=== PATIENT | male | born 1935 | race Caucasian/White ===

== ENCOUNTER 2017-09-11 07:47 | Day surgery (SDC) | payer MEDICARE ==
[~2017-09-11] VITALS: Ht 177.8 cm; Wt 70.0 kg
[~2017-09-11 07:47] MED LIST: ASPI325 PO; ASPI81EC PO; BENTYL20 MG PO; CLOB.05TC TP; DONE10 PO; FAMO20 PO; FLUO.05TC TOP; FLUO10; FURO20 PO; GLIM4 PO; GLIP2.5ER; GLYB5; GLYMET5 PO; Glipizide-Metf1 EAC2 PO; HYDACE5 PO; INSULANI SUBQ; KETO15TC TP; MECL25 PO; MEMA10 PO; METO25ER PO; MIDO5 PO; NITR.4SL SL; PIOG15 PO; Prozac20 MG PO; SPIR25 PO; Zofran4 MG PO
== END 2017-09-11 09:35 | disposition home or self-care (01) ==
LOC: ORSCSDS 07:47
PROVIDERS: Internal Medicine Gastroenterology
PROC: 06L38CZ Occlusion of Esophageal Vein with Extraluminal Device, Via Natural or Artificial Opening Endoscopic (ICD-10-PCS; principal; 2017-09-11 09:00)
DX: K74.60 Unspecified cirrhosis of liver (principal); I85.00 Esophageal varices without bleeding; K44.9 Diaphragmatic hernia without obstruction or gangrene; K76.6 Portal hypertension; I25.10 Atherosclerotic heart disease of native coronary artery without angina pectoris; E11.9 Type 2 diabetes mellitus without complications; K31.89 Other diseases of stomach and duodenum; Z79.899 Other long term (current) drug therapy
CPT/HCPCS: 82947

== ENCOUNTER 2017-10-30 12:50 | Day surgery (SDC) | payer MEDICARE ==
[~2017-10-30] VITALS: Ht 177.8 cm; Wt 66.4 kg
== END 2017-10-30 14:50 | disposition home or self-care (01) ==
LOC: ORSCSDS 12:50
PROVIDERS: Internal Medicine Gastroenterology
PROC: 06L38CZ Occlusion of Esophageal Vein with Extraluminal Device, Via Natural or Artificial Opening Endoscopic (ICD-10-PCS; principal; 2017-10-30 14:15)
DX: I85.00 Esophageal varices without bleeding (principal); K44.9 Diaphragmatic hernia without obstruction or gangrene; K22.2 Esophageal obstruction; R18.8 Other ascites; E11.9 Type 2 diabetes mellitus without complications; F32.9 Major depressive disorder, single episode, unspecified; I25.10 Atherosclerotic heart disease of native coronary artery without angina pectoris; Z79.899 Other long term (current) drug therapy; Z79.84 Long term (current) use of oral hypoglycemic drugs
CPT/HCPCS: 82947; J7120

== ENCOUNTER 2018-02-11 17:05 | Observation (INO) | payer MEDICARE ==
[~2018-02-11] VITALS: Ht 180.3 cm; Wt 70.9 kg
[2018-02-11] MEDS ORDERED: POTCHL10ER PO (18:55)
[2018-02-11] MEDS ORDERED: TRAZ50 PO (18:55)
[2018-02-11] MEDS ORDERED: MEMA5TAB PO (18:55)
[2018-02-11 18:56] LABS: BASOPHILS ABSOLUTE AUTO 0.07 K/mm3 (0.00-0.23); BASOPHILS PERCENT AUTO 1 % (0-2); EOSINOPHILS PERCENT AUTO 4 % (0-6); IMMATURE GRAN ABSOLUTE AUTO 0.04 K/mm3 (0.00-0.10); IMMATURE GRAN PERCENT AUTO 1 % (0-1); LYMPHOCYTES ABSOLUTE AUTO 2.52 K/mm3 (0.84-5.20); LYMPHOCYTES PERCENT AUTO 30 % (21-46); MONOCYTES ABSOLUTE AUTO 1.21 K/mm3 (0.16-1.47); MONOCYTES PERCENT AUTO 14 % (4-13); Mean Corpuscular HGB 32.7 pg (26.0-34.0); Mean Corpuscular HGB Conc 33.3 g/dL (31.5-36.5); Mean Corpuscular Volume 98 fL (80-100); Mean Platelet Volume 10.1 fL (9.1-12.4); NEUTROPHILS ABSOLUTE AUTO 4.37 K/mm3 (1.96-9.15); NEUTROPHILS PERCENT AUTO 51 % (41-73); Platelet Count 172 K/mm3 (150-400); RDW Coefficient Variation 12.8 % (11.7-14.2); RDW Standard Deviation 45.8 fL (35.1-46.3); Red Blood Cell Count 3.67 M/mm3 (4.30-5.90); White Blood Cell Count 8.51 K/mm3 (4.00-11.30)
[2018-02-11 19:08] LABS: Albumin, Blood 2.9 g/dL (3.4-5.0); Albumin/Globulin Ratio 0.7 (0.8-1.8); Bilirubin, Total 0.9 mg/dL (0.1-1.0); Bun/Creatinine Ratio 23.8 (12.0-20.0); Calcium, Blood 9.2 mg/dL (8.5-10.1); Creatinine, Blood 1.3 mg/dL (0.60-1.20); Globulin, Blood 4.4 g/dL (2.2-4.0); Potassium, Blood 4.3 mmol/L (3.5-5.5); Total Protein, Blood 7.3 g/dL (6.4-8.2)
[2018-02-11 19:12] LABS: Source, Urine Clean Catch
[2018-02-11 19:14] LABS: Appearance, Urine Hazy (Clear); Bilirubin, Urine Neg (Neg); Blood, Urine 3+ (Neg); Color, Urine Yellow (P-Yellow); Glucose Qualitative, Urine Neg (Neg); Ketones, Urine Neg (Neg); Leukocyte Esterase, Urine 1+ (Neg); Nitrite, Urine Pos (Neg); Protein, Urine Neg (Neg); Urobilinogen, Urine 1+ (Normal)
[2018-02-11 19:53] LABS: Bacteria Many /hpf; Squamous Epithelial Cells Few /hpf (Few)
[2018-02-11] MEDS ORDERED: CHOL10002 PO (22:07)
[2018-02-11] MEDS ORDERED: Glipizide-Metf1 EAC1 PO (22:08)
[2018-02-11] MEDS ORDERED: CYAN500 PO (22:11)
[2018-02-12 05:26] LABS: Anion Gap 6 mmol/L (6-16); Blood Urea Nitrogen 27 mg/dL (8-24); Bun/Creatinine Ratio 24.3 (12.0-20.0); CO2, Blood 26 mmol/L (21-32); Calcium, Blood 8.2 mg/dL (8.5-10.1); Chloride, Blood 106 mmol/L (98-108); Creatinine, Blood 1.11 mg/dL (0.60-1.20); Glomerular Filtration Rate >60 (60-); Glucose, Blood 62 mg/dL (70-99); Sodium, Blood 138 mmol/L (136-145)
[2018-02-13 05:23] LABS: BASOPHILS ABSOLUTE AUTO 0.04 K/mm3 (0.00-0.23); BASOPHILS PERCENT AUTO 1 % (0-2); EOSINOPHILS ABSOLUTE AUTO 0.31 K/mm3 (0.00-0.68); EOSINOPHILS PERCENT AUTO 5 % (0-6); Hematocrit 35.1 % (37.0-53.0); Hemoglobin 11.9 g/dL (13.5-17.5); IMMATURE GRAN ABSOLUTE AUTO 0.03 K/mm3 (0.00-0.10); IMMATURE GRAN PERCENT AUTO 1 % (0-1); LYMPHOCYTES ABSOLUTE AUTO 1.69 K/mm3 (0.84-5.20); LYMPHOCYTES PERCENT AUTO 28 % (21-46); MONOCYTES ABSOLUTE AUTO 0.97 K/mm3 (0.16-1.47); MONOCYTES PERCENT AUTO 16 % (4-13); Mean Corpuscular HGB 32.3 pg (26.0-34.0); Mean Corpuscular HGB Conc 33.9 g/dL (31.5-36.5); Mean Platelet Volume 9.3 fL (9.1-12.4); NEUTROPHILS PERCENT AUTO 51 % (41-73); Platelet Count 136 K/mm3 (150-400); RDW Coefficient Variation 12.3 % (11.7-14.2); RDW Standard Deviation 43.5 fL (35.1-46.3); Red Blood Cell Count 3.68 M/mm3 (4.30-5.90); White Blood Cell Count 6.14 K/mm3 (4.00-11.30)
[2018-02-13 05:27] LABS: Mean Corpuscular Volume 95 fL (80-100)
[2018-02-13 05:49] LABS: Alanine Aminotransfer (ALT/SGP 37 U/L (12-78); Albumin, Blood 2.6 g/dL (3.4-5.0); Albumin/Globulin Ratio 0.6 (0.8-1.8); Alk Phos 109 U/L (50-136); Anion Gap 6 mmol/L (6-16); Aspartate Aminotrans (AST/SGOT 39 U/L (12-37); Bilirubin, Total 1.3 mg/dL (0.1-1.0); Blood Urea Nitrogen 19 mg/dL (8-24); Bun/Creatinine Ratio 18.8 (12.0-20.0); CO2, Blood 26 mmol/L (21-32); Calcium, Blood 8.3 mg/dL (8.5-10.1); Chloride, Blood 110 mmol/L (98-108); Creatinine, Blood 1.01 mg/dL (0.60-1.20); Glomerular Filtration Rate >60 (60-); Glucose, Blood 81 mg/dL (70-99); Potassium, Blood 4.2 mmol/L (3.5-5.5); Sodium, Blood 142 mmol/L (136-145); Total Protein, Blood 6.6 g/dL (6.4-8.2)
[2018-02-14] MEDS ORDERED: Metformin HCl500 MG PO (10:00)
[2018-02-14] MEDS ORDERED: LEVFLO500 PO (10:00)
== END 2018-02-14 13:28 | disposition home health service (06) ==
LOC: ER 17:05 → MEDS 17:06 → ENPENDDIS 02-14 09:27 → MEDS 02-14 13:28
PROVIDERS: Emergency Medicine; Internal Medicine
DX: R53.1 Weakness (principal); R29.6 Repeated falls; N39.0 Urinary tract infection, site not specified; N17.9 Acute kidney failure, unspecified; K74.60 Unspecified cirrhosis of liver; F03.90 Unspecified dementia, unspecified severity, without behavioral disturbance, psychotic disturbance, mood disturbance, and anxiety; E11.9 Type 2 diabetes mellitus without complications; Z88.5 Allergy status to narcotic agent; Z88.8 Allergy status to other drugs, medicaments and biological substances; Z79.899 Other long term (current) drug therapy
CPT/HCPCS: 36415; 80048; 80053; 81001; 84443; 85025; 93005; 93010; 96361; 96365; 96372; 96374; 96375; 97161; 97166; 99285; G0378; G0515; G8978; G8979; G8980; G8987; G8988; G8989; J0696; J1650; J7030

== ENCOUNTER 2018-09-06 11:06 | Emergency (ER) | payer MEDICARE ==
[~2018-09-06] VITALS: Ht 172.7 cm; Wt 63.5 kg
[~2018-09-06 11:06] MED LIST changes: +CHOL10002 PO; +CYAN500 PO; +Glipizide-Metf1 EAC1 PO; +LEVFLO500 PO; +MEMA5TAB PO; +Metformin HCl500 MG PO; +POTCHL10ER PO; +TRAZ50 PO
== END 2018-09-06 11:54 | disposition home or self-care (01) ==
LOC: ER 11:06
DX: S41.112A Laceration without foreign body of left upper arm, initial encounter (principal); S41.111A Laceration without foreign body of right upper arm, initial encounter; E11.9 Type 2 diabetes mellitus without complications; F03.90 Unspecified dementia, unspecified severity, without behavioral disturbance, psychotic disturbance, mood disturbance, and anxiety; Z88.5 Allergy status to narcotic agent; Z79.899 Other long term (current) drug therapy; Z79.84 Long term (current) use of oral hypoglycemic drugs; Y04.0XXA Assault by unarmed brawl or fight, initial encounter
CPT/HCPCS: 99283

== ENCOUNTER 2018-10-09 10:47 | Emergency (ER) | payer MEDICARE ==
[~2018-10-09] VITALS: Ht 170.2 cm; Wt 65.8 kg
== END 2018-10-09 12:14 | disposition home or self-care (01) ==
LOC: ER 10:47
DX: M79.89 Other specified soft tissue disorders (principal); E11.9 Type 2 diabetes mellitus without complications; I25.10 Atherosclerotic heart disease of native coronary artery without angina pectoris; F03.90 Unspecified dementia, unspecified severity, without behavioral disturbance, psychotic disturbance, mood disturbance, and anxiety; Z88.5 Allergy status to narcotic agent; Z88.8 Allergy status to other drugs, medicaments and biological substances; Z79.899 Other long term (current) drug therapy; Z79.84 Long term (current) use of oral hypoglycemic drugs
CPT/HCPCS: 73130; 99283-25

== ENCOUNTER 2019-09-23 19:23 | Observation (INO) | payer MEDICARE ==
[~2019-09-23] VITALS: Ht 182.9 cm; Wt 68.5 kg
[~2019-09-23 19:23] MED LIST changes: -MEMA5TAB PO; -Prozac20 MG PO; -TRAZ50 PO
[2019-09-23 20:23] LABS: BASOPHILS ABSOLUTE AUTO 0.04 K/mm3 (0.00-0.23); BASOPHILS PERCENT AUTO 1 % (0-2); EOSINOPHILS ABSOLUTE AUTO 0.23 K/mm3 (0.00-0.68); EOSINOPHILS PERCENT AUTO 4 % (0-6); Hematocrit 38.5 % (37.0-53.0); Hemoglobin 12.5 g/dL (13.5-17.5); IMMATURE GRAN ABSOLUTE AUTO 0.02 K/mm3 (0.00-0.10); IMMATURE GRAN PERCENT AUTO 0 % (0-1); LYMPHOCYTES ABSOLUTE AUTO 1.94 K/mm3 (0.84-5.20); LYMPHOCYTES PERCENT AUTO 29 % (21-46); MONOCYTES PERCENT AUTO 17 % (4-13); Mean Corpuscular HGB 31.9 pg (26.0-34.0); Mean Corpuscular HGB Conc 32.5 g/dL (31.5-36.5); Mean Corpuscular Volume 98 fL (80-100); Mean Platelet Volume 10.1 fL (9.1-12.4); NEUTROPHILS ABSOLUTE AUTO 3.29 K/mm3 (1.96-9.15); NEUTROPHILS PERCENT AUTO 50 % (41-73); Platelet Count 143 K/mm3 (150-400); RDW Coefficient Variation 13.2 % (11.7-14.2); Red Blood Cell Count 3.92 M/mm3 (4.30-5.90); White Blood Cell Count 6.62 K/mm3 (4.00-11.30)
[2019-09-23] MEDS ORDERED: TRAZ50 PO (20:31)
[2019-09-23] MEDS ORDERED: Prozac20 MG PO (20:31)
[2019-09-23] MEDS ORDERED: MEMA5TAB PO (20:31)
[2019-09-23 20:47] LABS: Troponin I 0.015 ng/mL (0.000-0.040)
[2019-09-23 20:48] LABS: Thyroid Stimulating Hormone 2.72 uIU/mL (0.360-4.800)
[2019-09-23 21:38] LABS: Source, Urine Clean Catch
[2019-09-23 21:40] LABS: Bilirubin, Urine Neg (Neg); Blood, Urine 4+ (Neg); Glucose Qualitative, Urine Neg (Neg); Ketones, Urine Neg (Neg); Leukocyte Esterase, Urine Neg (Neg); Nitrite, Urine Neg (Neg); Protein, Urine Neg (Neg); Specific Gravity, Urine 1.015 (1.003-1.022); Urobilinogen, Urine 2+ (Normal)
[2019-09-23 21:46] LABS: Appearance, Urine Clear (Clear); Bacteria Not Seen /hpf; Color, Urine Yellow (P-Yellow); Squamous Epithelial Cells Not Seen /hpf (Few); White Blood Cells, Urine Not Seen /hpf (0-5)
[2019-09-23 22:07] LABS: Alanine Aminotransfer (ALT/SGP 38 U/L (12-78); Albumin, Blood 2.8 g/dL (3.4-5.0); Albumin/Globulin Ratio 0.6 (0.8-1.8); Alk Phos 210 U/L (50-136); Anion Gap 10 mmol/L (6-16); Aspartate Aminotrans (AST/SGOT 44 U/L (12-37); Blood Urea Nitrogen 20 mg/dL (8-24); Bun/Creatinine Ratio 20.8 (12.0-20.0); CO2, Blood 22 mmol/L (21-32); Calcium, Blood 8.4 mg/dL (8.5-10.1); Chloride, Blood 108 mmol/L (98-108); Creatinine, Blood 0.96 mg/dL (0.60-1.20); Globulin, Blood 4.4 g/dL (2.2-4.0); Glomerular Filtration Rate >60 (60-); Glucose, Blood 90 mg/dL (70-99); Potassium, Blood 4.1 mmol/L (3.5-5.5); Sodium, Blood 140 mmol/L (136-145); Total Protein, Blood 7.2 g/dL (6.4-8.2)
[2019-09-24 04:37] LABS: Hematocrit 37.4 % (37.0-53.0); Hemoglobin 12.2 g/dL (13.5-17.5); Mean Corpuscular HGB 31.9 pg (26.0-34.0); Mean Corpuscular HGB Conc 32.6 g/dL (31.5-36.5); Mean Corpuscular Volume 98 fL (80-100); Mean Platelet Volume 10.3 fL (9.1-12.4); Platelet Count 131 K/mm3 (150-400); RDW Standard Deviation 46.6 fL (35.1-46.3); Red Blood Cell Count 3.83 M/mm3 (4.30-5.90); White Blood Cell Count 6.39 K/mm3 (4.00-11.30)
--- NOTE | 2019-09-24 04:51 | NUR ---
TIMBER ESTIMATOR SUMMARY 0030 REPORT RECIEVED FROM ER NURSE RAFI. 0050 PT ARRIVED TO UNIT VIA STRETCHER. CAN ANSWER YES OR NO QUESTIONS. PT SLOW TO RESPOND AND HAS HX OF DEMENTIA. MULTIPLE SCRATCHES NOTICED ON BLE. REDNESS AND SORENESS IN GROIN AREA. NYSTAIN ORDERED. MULTIPLE BRUISES THROUGHOUT. ABRASION TO BILATERAL ELBOW. BANDAIDS APPLIED. NS FLUIDS RUNNING. DENIES PAIN, NAUSEA, AND OTHER DISCOMFORTS. CURRENTLY ON BEDREST. PT PLESANTLY CONFUSED. VSS, WILL CONTINUE TO MONITOR.
[2019-09-24 05:00] LABS: Alanine Aminotransfer (ALT/SGP 36 U/L (12-78); Albumin, Blood 2.6 g/dL (3.4-5.0); Albumin/Globulin Ratio 0.7 (0.8-1.8); Alk Phos 197 U/L (50-136); Anion Gap 6 mmol/L (6-16); Aspartate Aminotrans (AST/SGOT 42 U/L (12-37); Bilirubin, Total 1.4 mg/dL (0.1-1.0); Blood Urea Nitrogen 19 mg/dL (8-24); Bun/Creatinine Ratio 21.9 (12.0-20.0); CO2, Blood 23 mmol/L (21-32); Calcium, Blood 8.3 mg/dL (8.5-10.1); Chloride, Blood 110 mmol/L (98-108); Creatinine, Blood 0.87 mg/dL (0.60-1.20); Globulin, Blood 3.9 g/dL (2.2-4.0); Glomerular Filtration Rate >60 (60-); Glucose, Blood 84 mg/dL (70-99); Potassium, Blood 3.8 mmol/L (3.5-5.5); Sodium, Blood 139 mmol/L (136-145); Total Protein, Blood 6.5 g/dL (6.4-8.2)
--- NOTE | 2019-09-24 15:50 | NUR ---
SHIFT SUMMARY PATIENT IS PLEASANTLY CONFUSED. HE IS EASILY REDIRECTABLE. HE HAS BEEN MIXED CONT/INCONT OF BOWEL AND BLADDER TODAY. HE DOES NOT REMEMBER TO USE THE CALL LIGHT FOR STAFF ASSISTANCE, BUT HE IS VERY FORGETFUL. VITALS ARE STABLE AND WNL. RED AREAS NOTED TO BILATERAL HIPS AND COCCYX AREA, COVERED WITH FOAM BANDAGES FOR EXTRA PADDING. NO ACUTE CHANGES TO REPORT ON AT THIS TIME. WILL CONTINUE TO MONITOR AND PROVIDE CARE NEEDED.
--- NOTE | 2019-09-25 03:00 | NUR ---
APPEALS OFFICER SUMMARY PT A/O X1 TO SELF. SLEPT MAJORITY OF THE NIGHT. HAS TRIED TO GET OUT OF BED A FEW TIMES DURING THE NIGHT. MOST OF THE TIMES WHEN HE IS TRYING TO GET UP IS BECAUSE HE NEEDS TO USE THE URINAL OR BEDSIDE COMMODE. PT PULLED OUT IV IN RIGHT FOREARM. PT STARTED TO PULL OUT DNR BRACELET TOO AND STATED IT WAS "HURTING" HIM. RN. CARPIO INSERTED NEW IV IN L UPPER ARM. FLUSHES WELL. BED ALARM ON. CALL LIGHT WITHIN REACH. VSS, WILL CONTINUE TO MONITOR.
--- NOTE | 2019-09-25 18:26 | NUR ---
SHIFT SUMMARY. 1756 PT DISCHARGED HOME WITH HH VIA W/C TRANSPORT. IV REMOVED. D/C PACKET GIVEN TO CYLINDER CHECKER. PT PLEASANT ALL OF SHIFT, DISORIENTATED BUT EASILY DIRECTABLE. NO NEW CHANGES OR CONCERNS.
== END 2019-09-25 17:56 | disposition home health service (06) ==
LOC: ER 19:23 → MEDS 19:25 → ER 09-24 00:38 → MEDS 09-24 00:38 → ENPENDDIS 09-25 08:30 → MEDS 09-25 17:56
PROVIDERS: Emergency Medicine; ADMIT Internal Medicine
DX: R53.1 Weakness (principal); F03.90 Unspecified dementia, unspecified severity, without behavioral disturbance, psychotic disturbance, mood disturbance, and anxiety; E11.9 Type 2 diabetes mellitus without complications; K74.60 Unspecified cirrhosis of liver; E86.0 Dehydration; R21 Rash and other nonspecific skin eruption; I51.9 Heart disease, unspecified; Z88.5 Allergy status to narcotic agent; Z88.8 Allergy status to other drugs, medicaments and biological substances; Z79.899 Other long term (current) drug therapy; Z87.891 Personal history of nicotine dependence; Z72.89 Other problems related to lifestyle
CPT/HCPCS: 36415; 51701; 70450; 71045; 80053; 81001; 84443; 84484; 85025; 85027; 93005; 93010; 96372; 97110; 97162; 97166; 97530; 97535; 99285-25; G0378; J1650; J7030

== ENCOUNTER 2019-10-29 19:05 | Emergency (ER) | payer MEDICARE ==
[~2019-10-29] VITALS: Ht 177.8 cm; Wt 86.2 kg
[~2019-10-29 19:05] MED LIST changes: +MEMA5TAB PO; +Prozac20 MG PO; +TRAZ50 PO
[2019-10-29 20:19] LABS: BASOPHILS ABSOLUTE AUTO 0.04 K/mm3 (0.00-0.23); BASOPHILS PERCENT AUTO 1 % (0-2); EOSINOPHILS ABSOLUTE AUTO 0.17 K/mm3 (0.00-0.68); EOSINOPHILS PERCENT AUTO 3 % (0-6); Hematocrit 38.5 % (37.0-53.0); Hemoglobin 13.1 g/dL (13.5-17.5); IMMATURE GRAN ABSOLUTE AUTO 0.02 K/mm3 (0.00-0.10); IMMATURE GRAN PERCENT AUTO 0 % (0-1); LYMPHOCYTES ABSOLUTE AUTO 1.36 K/mm3 (0.84-5.20); LYMPHOCYTES PERCENT AUTO 21 % (21-46); MONOCYTES PERCENT AUTO 17 % (4-13); Mean Corpuscular HGB 32.8 pg (26.0-34.0); Mean Corpuscular Volume 97 fL (80-100); Mean Platelet Volume 9.5 fL (9.1-12.4); NEUTROPHILS ABSOLUTE AUTO 3.93 K/mm3 (1.96-9.15); NEUTROPHILS PERCENT AUTO 59 % (41-73); Platelet Count 149 K/mm3 (150-400); RDW Coefficient Variation 12.8 % (11.7-14.2); RDW Standard Deviation 45.7 fL (35.1-46.3); Red Blood Cell Count 3.99 M/mm3 (4.30-5.90); White Blood Cell Count 6.62 K/mm3 (4.00-11.30)
[2019-10-29 20:48] LABS: Alanine Aminotransfer (ALT/SGP 47 U/L (12-78); Albumin, Blood 2.9 g/dL (3.4-5.0); Albumin/Globulin Ratio 0.6 (0.8-1.8); Alk Phos 241 U/L (50-136); Anion Gap 2 mmol/L (6-16); Aspartate Aminotrans (AST/SGOT 42 U/L (12-37); Blood Urea Nitrogen 22 mg/dL (8-24); Bun/Creatinine Ratio 22.7 (12.0-20.0); CO2, Blood 29 mmol/L (21-32); Calcium, Blood 8.7 mg/dL (8.5-10.1); Chloride, Blood 102 mmol/L (98-108); Creatinine, Blood 0.97 mg/dL (0.60-1.20); Globulin, Blood 4.5 g/dL (2.2-4.0); Glomerular Filtration Rate >60 (60-); Glucose, Blood 174 mg/dL (70-99); Sodium, Blood 133 mmol/L (136-145); Total Protein, Blood 7.4 g/dL (6.4-8.2)
== END 2019-10-29 21:40 | disposition home or self-care (01) ==
LOC: ER 19:05
PROVIDERS: Emergency Medicine
DX: S01.81XA Laceration without foreign body of other part of head, initial encounter (principal); F03.90 Unspecified dementia, unspecified severity, without behavioral disturbance, psychotic disturbance, mood disturbance, and anxiety; E11.9 Type 2 diabetes mellitus without complications; X58.XXXA Exposure to other specified factors, initial encounter
CPT/HCPCS: 12001; 36415; 70450; 80053; 85025; 99284-25

== ENCOUNTER → 2019-12-18 | Outpatient (CLI) | payer MEDICARE, OTHER ==
[2019-12-18 16:14] LABS: Appearance, Urine Clear (Clear); Bilirubin, Urine Neg (Neg); Blood, Urine 1+ (Neg); Color, Urine Yellow (P-Yellow); Glucose Qualitative, Urine Neg (Neg); Ketones, Urine Neg (Neg); Leukocyte Esterase, Urine Neg (Neg); Nitrite, Urine Neg (Neg); Protein, Urine Neg (Neg); Specific Gravity, Urine 1.015 (1.003-1.022); Urobilinogen, Urine NORM (Normal)
[2019-12-18 16:24] LABS: Bacteria Few /hpf; Red Blood Cells, Urine 0-2 /hpf (0-2); Squamous Epithelial Cells Not Seen /hpf (Few); White Blood Cells, Urine 0-2 /hpf (0-5)
== END | disposition home or self-care (01) ==
LOC: LAB 13:43 → LAB SHORT 13:43
PROVIDERS: Nurse Practitioner
DX: N39.0 Urinary tract infection, site not specified (principal)
CPT/HCPCS: 81001

== ENCOUNTER → 2020-06-18 | Outpatient (CLI) | payer MEDICARE, OTHER ==
[2020-06-19 14:30] LABS: Appearance, Urine Clear (Clear); Bilirubin, Urine Neg (Neg); Blood, Urine Neg (Neg); Color, Urine Yellow (P-Yellow); Glucose Qualitative, Urine Neg (Neg); Ketones, Urine Neg (Neg); Leukocyte Esterase, Urine Neg (Neg); Nitrite, Urine Neg (Neg); Protein, Urine Neg (Neg); Urobilinogen, Urine NORM (Normal); pH, Urine 6.5 (5.0-8.0)
== END | disposition home or self-care (01) ==
LOC: LAB SHORT 14:15 → OLS 14:15 → LAB SHORT 06-19 14:15
PROVIDERS: Nurse Practitioner
DX: N39.0 Urinary tract infection, site not specified (principal)
CPT/HCPCS: 81003

== ENCOUNTER 2022-01-03 13:00 | Inpatient (IN) | payer MEDICARE, OTHER ==
[~2022-01-03] VITALS: Ht 177.8 cm; Wt 75.0 kg
[2022-01-03] MEDS ORDERED: DONEPEZIL HCL10 M1 PO (13:15)
[2022-01-03] MEDS ORDERED: K-Dur10 MEQ (13:15)
[2022-01-03] MEDS ORDERED: FUROSEMIDE20 MG PO (13:15)
[2022-01-03 14:50] LABS: Base Excess Venous -8.8 mmol/L; Bicarbonate Venous 17.7 mmol/L (24.0-30.0); PCO2 Venous 35.7 mmHg (38-42); PO2 Venous 56.8 mmHg (38-42)
[2022-01-03 15:13] LABS: BASOPHILS ABSOLUTE AUTO 0.02 K/mm3 (0.00-0.23); BASOPHILS PERCENT AUTO 0 % (0-2); EOSINOPHILS PERCENT AUTO 0 % (0-6); Hematocrit 33.5 % (37.0-53.0); Hemoglobin 10.7 g/dL (13.5-17.5); IMMATURE GRAN ABSOLUTE AUTO 0.04 K/mm3 (0.00-0.10); IMMATURE GRAN PERCENT AUTO 0 % (0-1); LYMPHOCYTES ABSOLUTE AUTO 0.82 K/mm3 (0.84-5.20); LYMPHOCYTES PERCENT AUTO 9 % (21-46); MONOCYTES PERCENT AUTO 14 % (4-13); Mean Corpuscular HGB Conc 31.9 g/dL (31.5-36.5); Mean Platelet Volume 10.9 fL (9.1-12.4); NEUTROPHILS ABSOLUTE AUTO 7.22 K/mm3 (1.96-9.15); NEUTROPHILS PERCENT AUTO 77 % (41-73); Platelet Count 138 K/mm3 (150-400); RDW Coefficient Variation 14.6 % (11.7-14.2); RDW Standard Deviation 53.5 fL (35.1-46.3); Red Blood Cell Count 3.34 M/mm3 (4.30-5.90)
[2022-01-03 15:14] LABS: Mean Corpuscular Volume 100 fL (80-100)
[2022-01-03 15:34] LABS: Albumin, Blood 2.4 g/dL (3.4-5.0); Albumin/Globulin Ratio 0.6 (0.8-1.8); Bilirubin, Total 1.1 mg/dL (0.1-1.0); Calcium, Blood 8.1 mg/dL (8.5-10.1); Creatinine, Blood 1.81 mg/dL (0.60-1.20); Globulin, Blood 4.1 g/dL (2.2-4.0); Potassium, Blood 5.2 mmol/L (3.5-5.5); Total Protein, Blood 6.5 g/dL (6.4-8.2)
[2022-01-03 16:34] LABS: Influenza A, PCR NEGATIVE (NEGATIVE); Influenza B, PCR NEGATIVE (NEGATIVE); Resp Syncytial Virus, PCR NEGATIVE (NEGATIVE); SARS-Cov-2 (COVID-19) PCR, MMC NEGATIVE (NEGATIVE)
[2022-01-03 23:34] LABS: Anti-Xa UFH, PHA Monitoring <0.10 IU/mL; International Normalized Ratio 1.36
--- NOTE | 2022-01-04 03:00 | NUR ---
PT ADMITTED TO ICU 16 FROM ED. PT ARRIVES AT 0217. SLIDE TRANSFERRED TO BED. PT NOTEABLY CONFUSED. DOES ATTEMPT TO PULL AT HIS IV'S. SOFT WRIST RESTRAINTS APPLIED. EDUCATED PT WITH REASON FOR RESTRAINTS. PT HAS NO COMPLAINTS OF CHEST PAIN OR PRESSURE. 2 LITERS PER MINUTE O2 PER NASAL CANNULA TO MAINTAIN SATURATIONS > 9O PERCENT. WILL REVIEW CHART AND PLAN OF CARE FOR THIS PT.
[2022-01-04 04:20] LABS: BASOPHILS ABSOLUTE AUTO 0.02 K/mm3 (0.00-0.23); BASOPHILS PERCENT AUTO 0 % (0-2); EOSINOPHILS PERCENT AUTO 0 % (0-6); Hemoglobin 10.7 g/dL (13.5-17.5); IMMATURE GRAN ABSOLUTE AUTO 0.09 K/mm3 (0.00-0.10); IMMATURE GRAN PERCENT AUTO 1 % (0-1); LYMPHOCYTES ABSOLUTE AUTO 1.36 K/mm3 (0.84-5.20); LYMPHOCYTES PERCENT AUTO 9 % (21-46); MONOCYTES ABSOLUTE AUTO 2.98 K/mm3 (0.16-1.47); MONOCYTES PERCENT AUTO 19 % (4-13); Mean Corpuscular HGB 31.7 pg (26.0-34.0); Mean Corpuscular HGB Conc 32.4 g/dL (31.5-36.5); Mean Corpuscular Volume 98 fL (80-100); Mean Platelet Volume 10.9 fL (9.1-12.4); NEUTROPHILS ABSOLUTE AUTO 11.47 K/mm3 (1.96-9.15); NEUTROPHILS PERCENT AUTO 72 % (41-73); Platelet Count 183 K/mm3 (150-400); RDW Coefficient Variation 14.5 % (11.7-14.2); RDW Standard Deviation 52.4 fL (35.1-46.3); Red Blood Cell Count 3.38 M/mm3 (4.30-5.90); White Blood Cell Count 15.92 K/mm3 (4.00-11.30)
[2022-01-04 04:48] LABS: Alanine Aminotransfer (ALT/SGP 400 U/L (12-78); Albumin, Blood 2.5 g/dL (3.4-5.0); Albumin/Globulin Ratio 0.6 (0.8-1.8); Alk Phos 186 U/L (50-136); Anion Gap 11 mmol/L (6-16); Aspartate Aminotrans (AST/SGOT 983 U/L (12-37); Blood Urea Nitrogen 38 mg/dL (8-24); Bun/Creatinine Ratio 16.8 (12.0-20.0); CO2, Blood 19 mmol/L (21-32); Calcium, Blood 8.3 mg/dL (8.5-10.1); Chloride, Blood 105 mmol/L (98-108); Cholesterol 137 mg/dL (50-200); Creatinine, Blood 2.26 mg/dL (0.60-1.20); Globulin, Blood 4.3 g/dL (2.2-4.0); Glomerular Filtration Rate 28 (60-); Glucose, Blood 162 mg/dL (70-99); HDL Cholesterol 68 mg/dL (>39); LDL/HDL RATIO 0.9; Low Density Lipoprotein Chol 63 mg/dL (0-110); Potassium, Blood 5.1 mmol/L (3.5-5.5); Sodium, Blood 135 mmol/L (136-145); Total Protein, Blood 6.8 g/dL (6.4-8.2); Triglycerides 30 mg/dL (30-160); Very Low Density Lipoprot Chol 6 mg/dL (6-32)
--- NOTE | 2022-01-04 06:30 | NUR ---
PT HAS FREQUENT REQUEST TO URINATE. PT VOIDS 20 - 30 ML PER VOID. BLADDER SCAN POST VOID RESIDUAL REVEALS 45 ML. PT CONTINUES ON HEPARIN DRIP PER PHARMACY. LEVOPHED REQUIRED THIS AM TO BE INCREASED BACK TO 11 MCG'S/MIN. WILL CONTINUE TO MONITOR PT, AND WILL REPORT OFF TO ONCOMING RN.
--- NOTE | 2022-01-04 11:59 | NUR ---
Case Conference: Spoke to Dr. Swain, hospitalist for Mr. Rehman at [facility] as well as Dinorah, RN at [facility]. She is aware of pt's current medical status, and she states her wish would be for pt to return to facility with hospice. Dinorah reports Kristy to be pt's family independence case manager at [facility], or [facility]. Awaiting return call from Kristy at [facility] for her input. There were family members listed on pt's face sheet, but they have not been involved in pt's care for some time now. Package Center Supervisor evaluated pt this am, and decided against taking him to the cardiac malthouse laborer at this time until a decision maker is identified, as pt has diagnosis of dementia, and given the extent of his advanced dementia, may not be a good candidate. He was diagnosed with NSTEMI today. Palliative will remain available.
--- NOTE | 2022-01-04 13:52 | NUR ---
Ethics consult order processed. Case detail, prognistic indicators, and advance care planning instrument reviewed with provider. The patient is reported to be alienated from his health care proxy, and his listed alternate HCR is not reachable despite a good melina effort. Per the principals AD, if two providers attest that he is in a terminal condition, and that additional internventions will not provide reasonable benefit, or hope of recovery, than aggressive care may be discontinued and a hospice election enacted. Thank you for this consult. Jeremy Bianchi, PhD, MARK
--- NOTE | 2022-01-04 18:40 | NUR ---
NO ACUTE EVENTS THIS SHIFT. NOREPINEPHERINE AND HEPARIN INFUSING. PT IS OREINTED TO SELF ONLY. RESTRAINED TO PROTECT LINES AND TUBES PT PULLED OUT 2 IVS EARLIER THIS MORNING. 3L NC.
--- NOTE | 2022-01-04 21:02 | NUR ---
ASSUMED CARE @1900 PT IS RESTING IN BED, SOFT BILATERAL WRIST RESTRAINTS IN PLACE, PT IS ORIENTED TO NAME ONLY, FOLLOWS DIRECTIONS DURING BED BOOST/ORAL CARE/MEDICATION ADMINISTRATION. PT HAS PICC LINE IN CONTRERAS MEASURED @6CM LEVOPHED INFUSING @4MCG/MIN, HEPARIN DRIP @15U/KG/HR. NC @3L. PERIPHERAL IV IN R FOREARM NOT IN USE. MULTIPLE AREAS OF BRUISING ON HANDS AND ARMS. SEE ASSESSMENT.
[2022-01-05 04:16] LABS: BASOPHILS ABSOLUTE AUTO 0.02 K/mm3 (0.00-0.23); BASOPHILS PERCENT AUTO 0 % (0-2); EOSINOPHILS PERCENT AUTO 0 % (0-6); Hematocrit 30.1 % (37.0-53.0); IMMATURE GRAN ABSOLUTE AUTO 0.13 K/mm3 (0.00-0.10); IMMATURE GRAN PERCENT AUTO 1 % (0-1); LYMPHOCYTES ABSOLUTE AUTO 0.69 K/mm3 (0.84-5.20); LYMPHOCYTES PERCENT AUTO 4 % (21-46); MONOCYTES ABSOLUTE AUTO 3.79 K/mm3 (0.16-1.47); MONOCYTES PERCENT AUTO 20 % (4-13); Mean Corpuscular HGB 31.9 pg (26.0-34.0); Mean Corpuscular HGB Conc 33.2 g/dL (31.5-36.5); Mean Corpuscular Volume 96 fL (80-100); NEUTROPHILS ABSOLUTE AUTO 13.93 K/mm3 (1.96-9.15); NEUTROPHILS PERCENT AUTO 75 % (41-73); Platelet Count 141 K/mm3 (150-400); RDW Coefficient Variation 14.4 % (11.7-14.2); RDW Standard Deviation 50.4 fL (35.1-46.3); Red Blood Cell Count 3.13 M/mm3 (4.30-5.90); White Blood Cell Count 18.56 K/mm3 (4.00-11.30)
--- NOTE | 2022-01-05 04:16 | NUR ---
PT HAS BEEN RESTING COMFORTABLY. KICKED OFF BLANKETS. RECOVERED PT. ASSESSMENT REMAINS UNCHANGED.
[2022-01-05 04:41] LABS: Albumin, Blood 2.5 g/dL (3.4-5.0); Albumin/Globulin Ratio 0.7 (0.8-1.8); Bun/Creatinine Ratio 23.6 (12.0-20.0); Calcium, Blood 8.2 mg/dL (8.5-10.1); Creatinine, Blood 2.54 mg/dL (0.60-1.20); Globulin, Blood 3.7 g/dL (2.2-4.0); Potassium, Blood 4.8 mmol/L (3.5-5.5); Total Protein, Blood 6.2 g/dL (6.4-8.2)
--- NOTE | 2022-01-05 06:08 | NUR ---
END OF SHIFT SUMMARY NO ACUTE EVENTS THIS SHIFT. PT WAS SLEEPING AND COMFORTABLE MOST OF THE NIGHT. NC @3L. SPO2 >94. RR LOW 18-20s. HR 80-90s. SBP 70-90s. LEVOPHED INFUSING AT 4MCG/MIN. HEPARIN @14U/KG/HR. PICC LINE IS @6CM, FLUSHES AND DRAWS BACK BLOOD EASILY. PT IS ORIENTED TO SELF ONLY. WILL FOLLOW SIMPLE COMMANDS. TOLERATING RESTRAINTS. WILL CONTINUE TO MONITOR AND REPORT TO ONCOMING RN.
--- NOTE | 2022-01-05 09:33 | NUR ---
ASSUMED CARE OF PT, REPORT RCV'D FROM TEMO MCDERMOTT AND KOMAL FRANCOIS. PT SOMULENT, TURNS EYES/HEAD TO VERBAL STIMULATION. NO VERBAL RESPONSE. FAILS TO FOLLOW COMMANDS AT THIS TIME. WEAK BILATERAL UPPER/LOWER EXTREMETIES. PT HAD GURGLING IN BACK OF THROAT, SUCTIONED MODERATE AMOUNT OF SPUTUM/OLD APPLESAUCE FROM BACK OF THROAT. SPEECH/SWALLOW EVAL PLACED D/T SUSPECTED ASPIRATION, WILL HOLD ALL P.O MEDS UNTIL COMPLETED. PT ON ROOM AIR SATS 95% , LUNG SOUNDS DIM RIGHT UPPER/LOWER AND LEFT LOWER LOBE, RIGHT UPPER LOBE CLEAR. HEPARIN GTT @14 U/KG/HR (77 KG DOSE WT). LEVOPHED PLACED ON STANDBY, GOAL TO MAINTAIN MAP>60. RESTRAINTS REMOVED PT IS LETHARGIC AND NOT ACTIVELY PULLING ON LINES/CORDS. BED LOW/LOCKED POSITION, DOOR/CURTAIN OPEN.
--- NOTE | 2022-01-05 11:36 | NUR ---
PT HAS LEFT UPPER GAZE, WILL TURN HEAD TOWARD VERBAL STIMULATION BUT DOES NOT MAKE EYE CONTACT. STILL NO VERBAL RESPONSE TO QUESTIONS. RIGHT LOWER FACIAL DROOP. SPEECH THERAPIST UNABLE TO COMPLETE SWALLOW EVAL PT DROWSY AND MINIMALLY RESPONSIVE. LEVOPHED REMAINS ON STANDBY, MAP>65.
--- NOTE | 2022-01-05 12:00 | NUR ---
PT TRANSITIONED TO COMFORT CARE. PT CONTINUES TO BE NONVERBAL WITH UPWARD LEFT GAZE, RIGHT SIDED FACIAL DROOP. DR. IGLESIAS AT BEDSIDE TO ASSESS PT.
--- NOTE | 2022-01-05 18:12 | NUR ---
CARETAKERS FROM [place] AT BEDSIDE COMFORTING PATIENT.
--- NOTE | 2022-01-05 19:48 | NUR ---
ASSUMED CARE OF PT @1900 PT WAS PLACED ON COMFORT CARE TODAY. PT IS NONVERBAL AND NOT RESPONSIVE TO VERBAL STIMULI. EXPERIENCING AIR HUNGER. SPO2 AND HR MONITOR IN PLACE.
--- NOTE | 2022-01-05 20:15 | NUR ---
NADIYA PT AT 194; CONFIRMED BY THIS RN. NOTIFIED CAREGIVER SHARRON FROM [place]. ATTMEPTED TO CALL PT DAUGHTER KENNETH TWICE WITH PHONE NUMBER ON FACESHEET [phone] AND THIS NUMBER HAS EITHER BEEN CHANGED OR DISCONNECTED. CALLED [facility] [place] AND THEY PROVIDED THE NUMBER TO PT SON-IN-LAW EDDI. ATTEMPTED TO CALL EDDI TWICE WITH NUMBER PROVIDED [phone] AND THIS NUMBER IS EITHER DISCONNECTED OR CHANGED. [place] DOES NOT HAVE INFORMATION REGARDING A PERFERED . NOTIFIED CHARGE NURSE SAWYER LLANES REGARDING SITUATION.
--- NOTE | 2022-01-05 21:33 | NUR ---
TRANSFERED PT PICKED UP BY THE [facility] AT [address]100 BY MERY SÁNCHEZ.
== END 2022-01-05 19:49 | DRG 871 ==
LOC: ER 13:00 → ICUW 20:19 → ERHOLD 20:19 → ICUW 23:55
PROVIDERS: Emergency Medicine; Family Medicine; Internal Medicine; Nurse Practitioner Acute Care; Student in an Organized Health Care Education/Training Program; ADMIT Hospitalist
PROC: 3E033XZ Introduction of Vasopressor into Peripheral Vein, Percutaneous Approach (ICD-10-PCS; 2022-01-03)
PROC: 3E03329 Introduction of Other Anti-infective into Peripheral Vein, Percutaneous Approach (ICD-10-PCS; 2022-01-03)
PROC: 02HV33Z Insertion of Infusion Device into Superior Vena Cava, Percutaneous Approach (ICD-10-PCS; principal; 2022-01-04)
DX: A41.9 Sepsis, unspecified organism (principal); I21.4 Non-ST elevation (NSTEMI) myocardial infarction; R65.21 Severe sepsis with septic shock; J18.9 Pneumonia, unspecified organism; I50.21 Acute systolic (congestive) heart failure; Z66 Do not resuscitate; Z51.5 Encounter for palliative care; I63.89 Other cerebral infarction; J69.0 Pneumonitis due to inhalation of food and vomit; N17.9 Acute kidney failure, unspecified; E87.1 Hypo-osmolality and hyponatremia; Z20.822 Contact with and (suspected) exposure to COVID-19; R57.0 Cardiogenic shock; D69.6 Thrombocytopenia, unspecified; Z78.1 Physical restraint status; E88.09 Other disorders of plasma-protein metabolism, not elsewhere classified; E83.51 Hypocalcemia; I35.0 Nonrheumatic aortic (valve) stenosis; F03.90 Unspecified dementia, unspecified severity, without behavioral disturbance, psychotic disturbance, mood disturbance, and anxiety; K74.60 Unspecified cirrhosis of liver; E11.9 Type 2 diabetes mellitus without complications; E78.5 Hyperlipidemia, unspecified; Z88.5 Allergy status to narcotic agent; Z88.8 Allergy status to other drugs, medicaments and biological substances; Z79.899 Other long term (current) drug therapy
CPT/HCPCS: 0241U; 36415; 36569; 71045; 80053; 80061; 82272; 82803; 83605; 83735; 83880; 84145; 84484; 85025; 85520; 85610; 86850; 86900; 86901; 93005; 93010; 93306; 96365; 96366; 96375; 99285-25; A9270; C1751; J0696; J1644; J2060; J2270; J2930; J7060